=== PATIENT | male | born 1970 | race Caucasian/White ===

== ENCOUNTER 2017-01-28 08:14 | Day surgery (SDC) | payer OTHER ==
[~2017-01-28] VITALS: Ht 177.8 cm; Wt 124.4 kg
[2017-01-28] MEDS ORDERED: PRINIVIL20 MG PO (08:50)
[2017-01-28] MEDS ORDERED: LIPITOR 40MG TA40 MG PO (08:50)
[2017-01-28] MEDS ORDERED: GLUCOPHAGE1000 MG PO (08:50)
[2017-01-28] MEDS ORDERED: OMEGA-31 SGL PO ×2 (08:51→08:52)
[2017-01-28] MEDS ORDERED: TEMOVATE0.05% TP (08:51)
[2017-01-28 08:54] VITALS: BP 126/86; PULSE 75; TEMP 98.5
[2017-01-28 10:49] VITALS: BP 132/81; PULSE 81; TEMP 97.9
[2017-01-28 11:05] VITALS: BP 141/87; PULSE 82
[2017-01-28 11:19] VITALS: BP 136/81; PULSE 82
[2017-01-28 11:35] VITALS: BP 130/84; PULSE 82
[2017-01-28 16:30] VITALS: BP 119/66; PULSE 73
== END 2017-01-28 11:50 | disposition home or self-care (01) ==
LOC: SDCO 08:14
DX: K21.0 Gastro-esophageal reflux disease with esophagitis (principal); K44.9 Diaphragmatic hernia without obstruction or gangrene; K29.30 Chronic superficial gastritis without bleeding; K57.30 Diverticulosis of large intestine without perforation or abscess without bleeding; K64.0 First degree hemorrhoids; G47.33 Obstructive sleep apnea (adult) (pediatric); E11.9 Type 2 diabetes mellitus without complications; I10 Essential (primary) hypertension; Z79.84 Long term (current) use of oral hypoglycemic drugs; Z98.52 Vasectomy status; Z87.891 Personal history of nicotine dependence; Z80.0 Family history of malignant neoplasm of digestive organs
CPT/HCPCS: OP; J2250; J3010; J7030